=== PATIENT | male | born 1945 | race Asian ===

== ENCOUNTER 2023-11-24 13:16 | Day surgery (SDC) | payer OTHER, SELFPAY ==
[2023-11-24] VITALS (13 sets, daily range): BP systolic 84–148; BP diastolic 65–78; BMI 27.0
[2023-11-24] MEDS: NSS 226 ML IV (14:11)
--- NOTE | 2023-11-24 18:46 | ITS.CL.CATH ---
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
Cardiac Catheterization
Procedure Report:
CARDIAC CATHETERIZATION REPORT
Date of Procedure: 11/24/2023
Referring: Josafat Limon MD
Indication: Angina with markedly ischemic stress test
�
HEMODYNAMIC DATA
AO: 152/67
LV: 152/17
�
LEFT VENTRICULOGRAPHY: Normal left ventricular wall motion with EF 64%
�
CORONARY ANGIOGRAPHY
Dominance: Right
Left Main: Normal
LAD: 40% mid LAD stenosis distal to the takeoff of D1. There is 30% mid LAD stenosis distal to D2. The remainder of the LAD system has mild luminal disease.
Circumflex: The circumflex gives rise to small OM1 and OM 2 branches before giving rise to a large OM 3 which has tandem 20% and 30% proximal stenoses. The circumflex terminates with a small left posterolateral branch.
RCA: The RCA is totally occluded in the midportion at the crux. There is LUCIAN grade 0 flow distal to the site of occlusion. There are faint [id number] collaterals to several small right posterolateral branches.
Angioplasty: At the conclusion the diagnostic study we made a decision to attempt to open the chronic total RCA occlusion. We did this because of his symptoms of angina and markedly ischemic stress test. The collaterals to the RCA appeared to be
poorly developed and the inferior wall moved normally on left ventriculography. Heparin was used for anticoagulation. A JR4 guide catheter was used. We first attempted to pass a hydrophilic whisper wire through the lesion. It would penetrate the
total occlusion but we could not cross what turned out to be a very long area of total occlusion. This was replaced by a pilot plant supervisor 50 wire with a 0.014 compatible exchange catheter (nkechi). We were unable to get this wire through the lesion despite
advancing the exchange catheter into the occlusion. A Fielder XT wire was advanced through the minie exchange catheter and would not cross the total occlusion. It was clear that we were stuck at the distal cap. At this point we advanced a guide
liner to the crux and were able to get a pilot plant supervisor 200 wire through the distal cap of the DOCK SUPERVISOR with great effort. The exchange catheter could not be passed through the occlusion and was removed. A 1.5 x 15 [employer]onic Euphora balloon could not be passed
completely through the lesion. This balloon was dilated to 12 arabella but angiography showed no real improvement. A 1.5 x 15 sprinter balloon was then advanced and we dilated this balloon as distally as possible but still could not cleanly get through
the occlusion. More aggressive attempts to push the balloon further resulted in prolapse of the entire system out into the aorta. The vessel was cannulated again with the JR4 guide catheter and angiography performed demonstrating a channel of flow
into the PDA and right AV groove branch. This gave us hope. We then advanced the pilot plant supervisor 200 again across the entire segment of disease into the PDA. With use of the guide liner past the crux we were finally able to push a fresh 1.5 x 15 sprinter
across the occlusion into the PDA. Balloon angioplasty was then performed segmentally backward along the whole length of occlusion and flow was reestablished into the PDA. A 2.0 x 20 trek balloon was then dilated along the entire length of the DOCK SUPERVISOR
and angiography showed excellent flow into the PDA and right AV groove branch. At this point we were able to place 2.75 x 38 and 2.75 x 18 [place] APOORVA in an overlapping fashion to cover the entire segment of occlusion. Each stent was deployed at 14
arabella then postdilated with a 2.75 NC trek to max 15 arabella. The final angiographic result was outstanding with no residual stenosis at the site of the long DOCK SUPERVISOR and yarsani of LUCIAN grade III flow into the PDA and posterolateral branches.
�
Closure Device: None-the procedure was performed via the right radial artery. The Austin's test was normal prior to the procedure
�
Radiation (mGy): 1120
DAP (cm2.Gy): 75.1
Fluoroscopy time: 28.2
�
CONCLUSIONS
1:�Systemic hypertension
2:�Normal left ventricular function with EF 64%
3. Mild left coronary disease with total occlusion of the mid RCA. This was a chronic total occlusion.
4. Successful angioplasty and stenting of the long segment DOCK SUPERVISOR of the distal RCA with placement of 2.75 x 38 and 2.75 x 18 [place] APOORVA. The final angiographic result was outstanding.
5. Recommend dual antiplatelet therapy for 12 months then lifelong aspirin monotherapy
6. Continue aggressive risk factor modification efforts with goal LDL less than 70 and ideally less than 55
�
�
Copy to: Josafat Limon MD,, Pb Mejia MD
�
Dalton Foster MD, FAC, [facility]
[2023-11-24] MEDS: NSS 1000 IV (19:00)
--- NOTE | 2023-11-24 20:30 | PTCARENOTE ---
pt pleasant and cooperative.denies chest pain or discomfort, right radial band intact. pt oriented to room and unit.iv fluids infusing as ordered.ekg done. will observe.
[2023-11-24] MEDS: LIPITOR 40 MG PO (20:41)
--- NOTE | 2023-11-24 23:30 | PTCARENOTE ---
radial band off. dressing intact.pt reminded frequently not to use right hand to push off bed.pt ambulated to br without difficulty. will observe.
[2023-11-25 04:13] VITALS: BP 118/70
[2023-11-25 04:26] VITALS: BMI 26.5
[2023-11-25 04:52] LABS: Hematocrit 40.2 % (39.0-52.0); Hemoglobin 13.7 g/dL (13.0-18.0); Mean Corp Hgb Conc. 34.1 g/dL (33.0-37.0); Mean Corpuscular Hgb 31.5 pg (27.0-31.0); Mean Corpuscular Volume 92.4 fL (80.0-94.0); Mean Platelet Volume 10.7 fL (7.4-10.4); Platelet Count 163 10^3/uL (130-400); Red Blood Cell Count 4.35 10^6/uL (4.70-6.10); Red Cell Dist. Width 12.9 % (11.5-14.5); White Blood Cell Count 6.3 10^3/uL (4.8-10.8)
[2023-11-25 05:16] LABS: Blood Urea Nitrogen 17 mg/dl (9-20); Calcium 9.8 mg/dl (8.4-10.2); Carbon Dioxide 25 mmol/L (22-30); Chloride 106 mmol/L (98-107); Estimated Creatinine Clearance 61 ml/min; Glucose 106 mg/dl (70-99); HDL Cholesterol 41 mg/dl; LDL Cholesterol, Calculated 72 mg/dl; Potassium 4.3 mmol/L (3.5-5.1); Sodium 142 mmol/L (135-145); Total Cholesterol 141 mg/dl (50-199); Triglyceride 141 mg/dl (10-149); Very Low Density Lipoprotein 28 mg/dl (0-30); eGFR > 60.00
[2023-11-25 07:30] VITALS: BP 123/70
[2023-11-25] MEDS: PLAVIX 75 MG PO (08:45)
[2023-11-25] MEDS: ORETIC 6.25 MG PO (08:45)
[2023-11-25] MEDS: COZAAR 25 MG PO (08:46)
[2023-11-25] MEDS: ASPIR LOW (ENTERIC COATED) 81 MG PO (08:46)
[2023-11-25] MEDS: TOPROL XL 25 MG PO (08:46)
--- NOTE | 2023-11-25 08:49 | W.PN.CD ---
Addendum entered and electronically signed by Sundar Sykes MD 11/25/23 09:55:
78 yo male with CAD admitted following RCA stenting. No chest pain. Exam with RRR, no murmurs, no edema. EKG: sinus clay. Hgb 13.7. Stable for discharge on DAPT.
Original Note:
Today's Communication / Plan
-
Discharge planning
Activity restrictions reviewed
Impression / Plan
-
Background: 78M who presented for coronary angiography after angina with abnormal stress testing
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
Coronary artery disease
-Status post angioplasty [facility]
-DAPT (aspirin and clopidogrel) uninterrupted for 1 year with aspirin indefinitely
-Right radial site without hematoma
-Hemoglobin stable
-EKG with sinus bradycardia
-Continue aggressive risk factor modification
Subjective:
Denies chest pain. Feeling well.
Physical Exam
Vital Signs/Labs
Vital Signs
Temp Pulse Resp BP Pulse Ox
97.8 F 60 16 123/70 93
11/25/23 07:30 11/25/23 08:46 11/25/23 07:30 11/25/23 08:46 11/25/23 07:30
11/24/23 11/25/23 11/26/23
06:59 06:59 06:59
Actual Weight 73.8 kg
11/25/23 04:20
11/25/23 04:20
Triglycerides 141 mg/dl (10-149) 11/25/23 04:20
LDL Cholesterol, Calc 72 mg/dl 11/25/23 04:20
VLDL Cholesterol, Calc 28 mg/dl (0-30) 11/25/23 04:20
HDL Cholesterol 41 mg/dl 11/25/23 04:20
Physical Exam
Constitutional: No acute distress and Comfortable
EENT: Anicteric and Moist mucous membranes
Cardiovascular: Rhythm & rate is regular, Pedal edema is absent and S1S2 is normal
Respiratory: Respiratory effort normal and Lungs clear to auscul.
GI: Soft, Distention absent, Flat, Non tender and Normal bowel sounds
Neuro/Psych: AO x 3
Other: Skin (Warm and dry) and Cath Site (Right radial site without hematoma)
Data Reviewed
-
Date of Service: November 25, 2023
X-Ray/CT/US/MRI/NUC/PET: Report Reviewed by me (Cardiac catheterization report)
Labs: Labs Reviewed by me
--- NOTE | 2023-11-25 08:52 | W.DS.TRANS ---
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
-
Discharge Instructions:
Discharge Diagnosis/Procedures Angioplasty and stent to right coronary artery
Diet Low Cholesterol
Activity No strenuous activity
Additional Activity See attached instructions
Driving Restrictions No driving for 24 hours
Bathing Restrictions None
Instructions:
Stand-Alone Forms: DC Instructions- Cath/EP Lab
Changes to Home Medications: Yes
Discharge Medications:
DC Medications w/original date entered in [facility]
Vitamin D (with calcium) 1 tab PO DAILY 11/24/23
aspirin 81 mg capsule 81 mg PO DAILY 11/24/23
atorvastatin 40 mg tablet 40 mg PO QPM #90 tabs 11/24/23
calcium 1 tab PO DAILY 11/24/23
clopidogrel 75 mg tablet 75 mg PO DAILY #90 tabs 11/24/23
fenofibrate micronized 0.5 tab PO DAILY 11/24/23
metoprolol succinate 25 mg capsule sprinkle, ext. release 24 hr 25 mg PO DAILY 11/24/23
nitroglycerin 0.4 mg sublingual tablet 0.4 mg sublingual [id number] PRN chest pain #25 tabs 11/24/23
telmisartan 40 mg-hydrochlorothiazide 12.5 mg tablet 0.5 tab PO DAILY 11/24/23
Home Medication Changes
New medications:
Atorvastatin 40 mg daily
Clopidogrel 75 mg daily
Nitrostat as needed
Pending Results: No
--- NOTE | 2023-11-25 11:08 | PTCARENOTE ---
Pt is primarily French speaking. Pt understands some [place]anian. All nursing measures discussed and demonstrated as needed.
--- NOTE | 2023-11-25 11:09 | PTCARENOTE ---
Discussed discharge instructions w/ pt and his . Encouraged questions. Will monitor.
[2023-11-27 09:39] LABS: ACT-LR - POC > 397 Seconds (116-155)
[2023-11-27 09:39] LABS: ACT-LR - POC > 397 Seconds (116-155)
[2023-11-27 09:39] LABS: ACT-LR - POC > 397 Seconds (116-155)
== END 2023-11-25 12:30 | disposition home or self-care (01) ==
LOC: CATH 13:16
PROVIDERS: Nurse Practitioner; ATTENDING PHYSICIAN Internal Medicine Cardiovascular Disease; FAMILY PHYSICIAN Internal Medicine
DX: I25.119 Atherosclerotic heart disease of native coronary artery with unspecified angina pectoris (principal); I25.82 Chronic total occlusion of coronary artery; I10 Essential (primary) hypertension; R94.39 Abnormal result of other cardiovascular function study; E78.2 Mixed hyperlipidemia; R06.09 Other forms of dyspnea; Z79.82 Long term (current) use of aspirin; Z79.02 Long term (current) use of antithrombotics/antiplatelets; Z79.899 Other long term (current) drug therapy
CPT/HCPCS: 80048; 80061; 85027; 85347; 93005; 93458; C1725; C1769; C1874; C1894; C9607; Q9967